=== PATIENT | male | born 1955 | race American Indian/Alaskan Native ===

== ENCOUNTER 2025-06-02 21:09 | Emergency (ER) | payer OTHER, MEDICARE ==
[~2025-06-02] VITALS: Ht 195.6 cm; Wt 70.5 kg
[~2025-06-02 21:09] MED LIST: OXYC-145 PO; PANT-47 PO; WEL75T PO
[2025-06-02 21:12] VITALS: RESP 16
[2025-06-02 21:25] VITALS: O2SAT 96
[2025-06-02] MEDS ORDERED: LIDOcaine 1% W/epiNEPHrine 1:100,000 20ml vial SQ ONE (21:25)
--- NOTE | 2025-06-02 22:04 | Physician Documentation ---
History of Present Illness ~ Chief Complaint: Bite-animal Stated Complaint: DOG BITE Time Seen by MD: 21:20 Primary Medical Doctor: NONE Mode of Arrival: POV HPI 69 year old male with bites to back of R hand and forearm from breaking up a dog fight between his own domesticated, fully-vaccinated dogs. Denies other injury. Tetanus within 5 years?: Yes Medication Reconciliation Allergies: Coded Allergies: No Known Allergies (Unverified , 07/01/12) Scheduled Bupropion Hcl* (Wellbutrin*), 75 MG PO BID, (Reported) Pantoprazole Sodium (PROTONIX tablet), 40 MG PO DAILY, (Reported) Scheduled PRN Oxycodone HCl/Acetaminophen (Percocet 5-325 mg Tablet), 1 TAB PO PRN PRN for pain, (Reported) Past Medical History Past Medical History: Osteoarthritis Past Surgical History: orthopedic surgeries Alcohol Use: Occasionally Drug Use: none Lives with: Family Lives In: Home Occupation: disabled Review of Systems All Other Systems at this time: Reviewed and Negative Physical Exam Vital Signs: RN Vital Signs have been reviewed: Yes, Temperature: 98.1, Source: Oral, Heart Rate: 90, Respiratory Rate: 16, BP: 115/78, Pulse Oximetry: 96, Weight: 70.450 Oxygen Flow Rate: 0 Physical Exam HEENT: PERRL, moist oral mucosa, EOMI Pulmonary: No respiratory distress Cardiac: RRR, no murmur, rub or gallop GI: nondistended, soft, nontender, no guarding, no rebound MSK: no deformity; full strength all motor movements affected R hand distal to wound Skin: w/d/i, no rash; R forearm and R hand with scattered puncture wounds and one 3cm full thickness linear laceration plus one triangular laceration to dorsum R hand. Neuro: alert, nonfocal Psych: normal affect Procedures Laceration/Wound Repair Laceration/Wound Repair : Anesthesia: Lidocaine w/ Epi Volume Anesthetic (mls): 5 Prep: irrigated by nurse Debrided: minimal Undermining: none Margins: flaps aligned Foreign Body: not identified Repaired: skin Wound Repaired With: sutures Suture Size/Type: 4-0, nylon Number of Superficial Sutures: 5 Tolerated Procedure Well?: yes, no complications Procedure Note horizontal mattress technique Progress Results/Orders Results/Orders Completed Orders - SIM CORNELIUS MD Lidocaine 1% W/Epi 1:100,000 (Xylocaine (06/02/25 21:25) Vital Signs 06/02/25 06/02/25 21:12 21:25 Temp 98.1 Pulse 90 90 Resp 16 B/P (MAP) 115/78 115/78 (90) Pulse Ox 96 96 O2 Flow Rate 0 Medical Decision Making Findings 69 year old male with dog bites to dorsum R hand and forearm. Cleansed and r epaired without complication. No evidence of neurovascuar or tendon injury. Return precautions. Differential Dx:Considerations: Include: Abrasion, Hematoma, Laceration, Neurovascular injury, Punture wound, Retained foreign body Departure Disposition: HOME / SELF CARE / HOMELESS Impression: Primary Impression: Dog bite Additional Impression: Laceration Condition: Stable Discharge Instructions: Animal Bite, Adult, Laceration Care, Adult, [id number] Referrals: NO PRIMARY CARE PROVIDER (PCP) Education Educated: Patient Educated regarding: diagnosis, treatment, prognosis, need for follow up Signature Scribe Signature: . Attestation: . SIM CORNELIUS MD Jun 02, 2025 22:04
[2025-06-02 22:15] VITALS: BP 142/107; PULSE 76; TEMP 98.1
== END 2025-06-02 22:18 | disposition home or self-care (01) ==
LOC: ER 21:09
DX: S61.411A Laceration without foreign body of right hand, initial encounter (principal); M19.90 Unspecified osteoarthritis, unspecified site; W54.0XXA Bitten by dog, initial encounter; Y93.89 Activity, other specified; Y92.89 Other specified places as the place of occurrence of the external cause; Y99.8 Other external cause status
CPT/HCPCS: 12002; 99282; J7030

== ENCOUNTER 2025-07-03 07:16 | Outpatient (CLI) | payer OTHER ==
[~2025-07-03] VITALS: Ht 193 cm; Wt 70.8 kg
[2025-07-03] MEDS: albuterol 2.5 MG/3 ML nebule NEB ONE (08:06)
[2025-07-03 08:07] VITALS: PULSE 80; RESP 16; O2SAT 93
[2025-07-03 08:20] VITALS: PULSE 86; RESP 18
--- NOTE | 2025-07-03 11:34 | PROCEDURE NOTE - Respiratory ---
Procedure Note-Respiratory Providers to CC Copies To 1: DARRIN ESPANA DO Procedure Name: This is a spirometry study dated July 03, 2025. The spirometry study was performed both before and after inhaled bronchodilator medication. Spirometry measurements: The forced vital capacity is normal. The FEV1 is severely reduced. The FEV1 ratio is also severely reduced. All of the measured flow rates are significantly depressed. After inhaled bronchodilator was administered there is small but significant improvement in the vital capacity and some of the flow rate measurements. Conclusion: This study is abnormal. There is evidence for severe obstructive ventilatory defect. The patient shows only marginal improvement with inhaled bronchodilator. 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 It is strongly recommended that the patient abstain from cigarette smoking. Bronchodilator therapy should continue for this patient. We have no previous studies for comparison. YORDAN FRANCIS MD Jul 03, 2025 11:34
== END 2025-07-03 23:59 | disposition home or self-care (01) ==
LOC: RT 07:16
PROVIDERS: ATTEND Chiropractor
DX: J44.9 Chronic obstructive pulmonary disease, unspecified (principal)
CPT/HCPCS: 94060; 94760